=== PATIENT | female | born 2000 | race Caucasian/White ===

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

== ENCOUNTER 2021-03-27 20:01 | Emergency (ER) | payer OTHER ==
--- NOTE | 2021-03-27 20:26 | ED ---
General Adult HPI - General Chief complaint: Abdominal Pain Stated complaint: Abd Pain,Vomiting Time Seen by Provider: 03/27/21 20:18 Source: patient Mode of arrival: ambulatory Limitations: no limitations - History of Present Illness Initial comments: Dictation was produced using [employer] dictation software. please excuse any grammatical, word or spelling errors. Chief Complaint: 20-year-old female with no significant past medical history presents with nausea vomiting in abdominal pain History of Present Illness: Patient is a 20-year-old female presents to the emergency department with nausea vomiting and abdominal pain. She works at a [employer] She states that she was told by her boss to come to the emergency department and reevaluated. She had episode of nonbilious nonbloody vomiting. States that she has pain in her suprapubic area. Denies any urinary symptoms. Patient denies . Denies any constitutional symptoms. Denies any vaginal discharge or vaginal bleeding. The ROS documented in this emergency department record has been reviewed and confirmed by me. Those systems with pertinent positive or negative responses have been documented in the HPI. All other systems are other negative and/or noncontributory. PHYSICAL EXAM: General Impression: Alert and oriented x3, not in acute distress HEENT: Normocephalic atraumatic, extra-ocular movements intact, pupils equal and reactive to light bilaterally, mucous membranes moist. Cardiovascular: Heart regular rate and rhythm Chest: Able to complete full sentences, no retractions, no tachypnea Abdomen: abdomen soft, minimally tender in the suprapubic area., non-distended, no organomegaly Musculoskeletal: Pulses present and equal in all extremities, no peripheral edema Motor: no focal deficits noted Neurological: CN II-XII grossly intact, no focal motor or sensory deficits noted Skin: Intact with no visualized rashes Psych: Normal affect and mood ED course: 20-year-old female presents with abdominal pain nausea vomiting. Vital Signs upon arrival are within acceptable limits. Laboratory evaluation obtained. CBC, metabolic panel is unremarkable. Urinalysis is negative. Urine hCG is negative. Patient reevaluated at bedside. Patient reevaluated at signs continued to have what she reports is severe pain. She states that it is exacerbated with right lateral decubitus position. Patient states that her symptoms are colicky. There is concern for ovarian torsion. Transvaginal ultrasound is ordered. Transvaginal ultrasound was obtained showing small left ovarian cyst. Otherwise no acute processes. Patient reevaluated at bedside unable be in stable medical condition. Patient will be discharged. - Related Data Home Medications Medication Instructions Recorded Confirmed No Known Home Medications 07/20/18 07/20/18 Allergies Allergy/AdvReac Type Severity Reaction Status Date / Time No Known Allergies Allergy Verified 03/27/21 20:04 Review of Systems ROS Statement: Those systems with pertinent positive or pertinent negative responses have been documented in the HPI. ROS Other: All systems not noted in ROS Statement are negative. Past Medical History Past Medical History: No Reported History History of Any Multi-Drug Resistant Organisms: None Reported Past Surgical History: No Surgical Hx Reported Past Psychological History: Depression Past Alcohol Use History: None Reported Past Drug Use History: None Reported General Exam Limitations: no limitations Course Vital Signs 03/27/21 20:02 Temperature 98.7 F Pulse Rate 70 Respiratory 18 Rate Blood Pressure 110/65 O2 Sat by Pulse 100 Oximetry Medical Decision Making - Lab Data Result diagrams: 03/27/21 20:41 03/27/21 20:41 Lab Results 03/27/21 03/27/21 03/27/21 Range/Units 20:41 20:41 20:41 WBC 6.4 (4.0-11.0) k/uL RBC 4.48 (3.80-5.40) m/uL Hgb 11.2 L (11.4-16.0) gm/dL Hct 33.6 L (34.0-46.0) % MCV 75.0 L (80.0-100.0) fL MCH 25.0 (25.0-35.0) pg MCHC 33.3 (31.0-37.0) g/dL RDW 17.2 H (11.5-15.5) % Plt Count 274 (150-450) k/uL MPV 8.2 Neutrophils % 63 % Lymphocytes % 26 % Monocytes % 6 % Eosinophils % 3 % Basophils % 1 % Neutrophils # 4.1 (1.3-7.7) k/uL Lymphocytes # 1.6 (1.0-4.8) k/uL Monocytes # 0.4 (0-1.0) k/uL Eosinophils # 0.2 (0-0.7) k/uL Basophils # 0.1 (0-0.2) k/uL Anisocytosis Slight Microcytosis Slight Sodium (137-145) mmol/L Potassium (3.5-5.1) mmol/L Chloride (98-107) mmol/L Carbon Dioxide (22-30) mmol/L Anion Gap mmol/L BUN (7-17) mg/dL Creatinine (0.52-1.04) mg/dL Est GFR (CKD-EPI)AfAm (>60 ml/min/1.73 sqM) Est GFR (CKD-EPI)NonAf (>60 ml/min/1.73 sqM) Glucose (74-99) mg/dL Calcium (8.4-10.2) mg/dL Magnesium (1.6-2.3) mg/dL Total Bilirubin (0.2-1.3) mg/dL AST (14-36) U/L ALT (4-34) U/L Alkaline Phosphatase (38-126) U/L Total Protein (6.3-8.2) g/dL Albumin (3.5-5.0) g/dL Lipase (23-300) U/L Urine Color Yellow Urine Appearance Clear (Clear) Urine pH 6.5 (5.0-8.0) Ur Specific Kendall 1.015 (1.001-1.035) Urine Protein Negative (Negative) Urine Glucose (UA) Negative (Negative) Urine Ketones Negative (Negative) Urine Blood Negative (Negative) Urine Nitrite Negative (Negative) Urine Bilirubin Negative (Negative) Urine Urobilinogen <2.0 (<2.0) mg/dL Ur Leukocyte Esterase Negative (Negative) Urine HCG, Qual Not Detected (Not Detectd) 03/27/21 Range/Units 20:41 WBC (4.0-11.0) k/uL RBC (3.80-5.40) m/uL Hgb (11.4-16.0) gm/dL Hct (34.0-46.0) % MCV (80.0-100.0) fL MCH (25.0-35.0) pg MCHC (31.0-37.0) g/dL RDW (11.5-15.5) % Plt Count (150-450) k/uL MPV Neutrophils % % Lymphocytes % % Monocytes % % Eosinophils % % Basophils % % Neutrophils # (1.3-7.7) k/uL Lymphocytes # (1.0-4.8) k/uL Monocytes # (0-1.0) k/uL Eosinophils # (0-0.7) k/uL Basophils # (0-0.2) k/uL Anisocytosis Microcytosis Sodium 139 (137-145) mmol/L Potassium 3.7 (3.5-5.1) mmol/L Chloride 106 (98-107) mmol/L Carbon Dioxide 25 (22-30) mmol/L Anion Gap 8 mmol/L BUN 7 (7-17) mg/dL Creatinine 0.57 (0.52-1.04) mg/dL Est GFR (CKD-EPI)AfAm >90 (>60 ml/min/1.73 sqM) Est GFR (CKD-EPI)NonAf >90 (>60 ml/min/1.73 sqM) Glucose 83 (74-99) mg/dL Calcium 9.5 (8.4-10.2) mg/dL Magnesium 2.0 (1.6-2.3) mg/dL Total Bilirubin 0.1 L (0.2-1.3) mg/dL AST 24 (14-36) U/L ALT 11 (4-34) U/L Alkaline Phosphatase 63 (38-126) U/L Total Protein 7.5 (6.3-8.2) g/dL Albumin 4.5 (3.5-5.0) g/dL Lipase 103 (23-300) U/L Urine Color Urine Appearance (Clear) Urine pH (5.0-8.0) Ur Specific Kendall (1.001-1.035) Urine Protein (Negative) Urine Glucose (UA) (Negative) Urine Ketones (Negative) Urine Blood (Negative) Urine Nitrite (Negative) Urine Bilirubin (Negative) Urine Urobilinogen (<2.0) mg/dL Ur Leukocyte Esterase (Negative) Urine HCG, Qual (Not Detectd) Disposition Clinical Impression: Abdominal pain Disposition: HOME SELF-CARE Condition: Fair Instructions (If sedation given, give patient instructions): Abdominal Pain (ED) Is patient prescribed a controlled substance at d/c from ED?: No Referrals: None,Stated [Primary Care Provider] - 1-2 days
[2021-03-27 20:52] LABS: Anisocytosis Slight; Basophils # (A) 0.1 k/uL (0-0.2); Basophils % (A) 1 %; Eosinophils # (A) 0.2 k/uL (0-0.7); Eosinophils % (A) 3 %; HCT 33.6 % (34.0-46.0); HGB 11.2 gm/dL (11.4-16.0); Lymphocytes # (A) 1.6 k/uL (1.0-4.8); Lymphocytes % (A) 26 %; MCHC 33.3 g/dL (31.0-37.0); Mean Platelet Volume 8.2; Microcytosis Slight; Monocytes # (A) 0.4 k/uL (0-1.0); Monocytes % (A) 6 %; Neutrophils # (A) 4.1 k/uL (1.3-7.7); Neutrophils % (A) 63 %; Platelet Count 274 k/uL (150-450); RBC 4.48 m/uL (3.80-5.40); RDW 17.2 % (11.5-15.5); WBC 6.4 k/uL (4.0-11.0)
[2021-03-27 20:55] LABS: Appearance,Urine Clear (Clear); Bilirubin,Urine Negative (Negative); Blood,Urine Negative (Negative); Color,Urine Yellow; Glucose,Urine (UA) Negative (Negative); Ketones,Urine Negative (Negative); Leukocyte Esterase,Urine Negative (Negative); Nitrite,Urine Negative (Negative); PH, Urine 6.5 (5.0-8.0); Protein,Urine Negative (Negative); Specific Gravity,Urine 1.015 (1.001-1.035); Urobilinogen,Urine <2.0 mg/dL (<2.0)
[2021-03-27 21:06] LABS: ALT 11 U/L (4-34); AST 24 U/L (14-36); African American GFR (CKD) >90 (>60 ml/min/1.73 sqM); Albumin 4.5 g/dL (3.5-5.0); Alkaline Phosphatase 63 U/L (38-126); Anion Gap 8 mmol/L; Blood Urea Nitrogen 7 mg/dL (7-17); Calcium 9.5 mg/dL (8.4-10.2); Carbon Dioxide 25 mmol/L (22-30); Chloride 106 mmol/L (98-107); Glucose 83 mg/dL (74-99); Lipase 103 U/L (23-300); Non-African American GFR(CKD) >90 (>60 ml/min/1.73 sqM); Potassium 3.7 mmol/L (3.5-5.1); Sodium 139 mmol/L (137-145); Total Bilirubin 0.1 mg/dL (0.2-1.3); Total Protein 7.5 g/dL (6.3-8.2)
--- NOTE | 2021-03-27 21:57 | US ---
EXAMINATION TYPE: US transvaginal DATE OF EXAM: 03/27/2021 COMPARISON: NONE CLINICAL HISTORY: pelvic pain. Pain, NV TECHNIQUE: Transvaginal (TV) Date of LMP: 03/10/2021, G0 EXAM MEASUREMENTS: Uterus: 7.6 x 4.3 x 3.1 cm Endometrial Stripe: 0.9 cm Right Ovary: 3.4 x 2.2 x 1.6 cm Left Ovary: 3.5 x 2.7 x 2.4 cm 1. Uterus: Anteverted wnl 2. Endometrium: wnl 3. Right Ovary: wnl 4. Left Ovary: hypoechoic lesion with peripheral vascular flow = 1.7 x 1.9 x 1.0 cm Spectral, color and waveform doppler imaging shows good arterial and venous flow within the ovaries ; there is no evidence for ovarian torsion. 5. Bilateral Adnexa: free fluid seen in right adnexa 6. Posterior cul-de-sac: free fluid IMPRESSION: There is left ovarian cyst. Minimal free fluid in the right adnexal region. No evidence of solid adne xal mass. Normal uterus. No evidence of ovarian torsion.
[2021-03-27] MEDS: ONDANSETRON 4 MG ODT STARTER PACK 2 TAB BTL PO STA (23:04)
[2021-03-27] MEDS: IBUPROFEN 600 MG STARTER PACK 4 TAB BTL PO STA (23:04)
[2021-03-27] MEDS: IBUPROFEN 800 MG TAB PO STA (23:06)
[2021-03-27 23:13] VITALS: BP 111/78; PULSE 60; RESP 16; TEMP 98.4
== END 2021-03-27 23:13 | disposition home or self-care (01) ==
LOC: EC 20:01
DX: R10.9 Unspecified abdominal pain (principal); F32.9 Major depressive disorder, single episode, unspecified
CPT/HCPCS: 36415; 80053; 83690; 83735; 85025; 81003; 81025; 93975; 76830; 99284; S0119

== ENCOUNTER 2021-05-05 18:06 | Emergency (ER) | payer OTHER ==
[2021-05-05 18:19] VITALS: BP 103/67; PULSE 86; RESP 18; TEMP 97.4
[2021-05-05] MEDS ORDERED: IBUPROFEN 600 MG TAB PO STA (19:13)
--- NOTE | 2021-05-05 19:57 | XR ---
EXAMINATION TYPE: XR thoracic spine 2V DATE OF EXAM: 05/05/2021 COMPARISON: NONE HISTORY: Back pain TECHNIQUE: 3 views FINDINGS: Thoracic vertebra have normal spacing and alignment. Posterior elements are intact. There i s no paraspinal mass. There is no compression fracture. IMPRESSION: Negative thoracic spine exam. No fracture.
--- NOTE | 2021-05-05 20:00 | XR ---
EXAMINATION TYPE: XR lumbar spine 2 or 3V DATE OF EXAM: 05/05/2021 COMPARISON: NONE HISTORY: Back pain TECHNIQUE: 3 views FINDINGS: The lumbar vertebra have normal spacing and alignment. Posterior elements are intact. There is no compression fracture. Sacroiliac joints are intact. IMPRESSION: Negative lumbar spine exam. No fracture.
--- NOTE | 2021-05-05 20:13 | ED ---
Back Pain HPI - General Chief Complaint: Back Pain/Injury Stated Complaint: slip & fall, back pain Time Seen by Provider: 05/05/21 18:56 Source: patient Limitations: no limitations - History of Present Illness Initial Comments: 20-year-old female who presents emergency department for reported mid and lower back pain. States that she slipped on some water in the kitchen yesterday and fell flat on her back. She has had for. Present taken anything for pain. Denies any numbness, 2 layer weakness in her arms or legs. She did not lose consciousness. She did not her head. No fevers or chills. No history of drug use. No anesthesia. No other alleviating, precipitating or modifying factors - Related Data Home Medications Medication Instructions Recorded Confirmed No Known Home Medications 07/20/18 07/20/18 Allergies Allergy/AdvReac Type Severity Reaction Status Date / Time No Known Allergies Allergy Verified 05/05/21 18:19 Review of Systems ROS Statement: Those systems with pertinent positive or pertinent negative responses have been documented in the HPI. ROS Other: All systems not noted in ROS Statement are negative. Past Medical History Past Medical History: No Reported History History of Any Multi-Drug Resistant Organisms: None Reported Past Surgical History: No Surgical Hx Reported Past Psychological History: Depression Smoking Status: Vaper Past Alcohol Use History: None Reported Past Drug Use History: None Reported General Exam Limitations: no limitations Course Vital Signs 05/05/21 18:16 Temperature 97.4 F L Pulse Rate 86 Respiratory 18 Rate Blood Pressure 103/67 O2 Sat by Pulse 100 Oximetry Medical Decision Making - Medical Decision Making On arrival patient was placed into room 29. Thorough history and physical exam is performed. She is neurovascularly intact. She is sent over for x-rays of her thoracic and lumbar spine which demonstrate no acute fractures. She is offered something for pain control does agree to accept Motrin. Results are discussed the patient. She'll be discharged home and instructed to take Motrin and Tylenol at home for pain control. She is given a work no. Patient agreed to the treatment plan was discharged home in stable condition. She is to follow-up with primary care doctor in 2-4 days Disposition Clinical Impression: Thoracic back pain, Strain of lumbar region Disposition: HOME SELF-CARE Condition: Stable Instructions (If sedation given, give patient instructions): Acute Low Back Pain (ED) Additional Instructions: Take Motrin and Tylenol for pain control. Follow up with your doctor in 2-4 days. Return to the ED for any new or worsening symptoms. Is patient prescribed a controlled substance at d/c from ED?: No Referrals: None,Stated [Primary Care Provider] - 1-2 days Time of Disposition: 20:12
== END 2021-05-05 20:25 | disposition home or self-care (01) ==
LOC: EC 18:06
DX: S39.012A Strain of muscle, fascia and tendon of lower back, initial encounter (principal); M54.6 Pain in thoracic spine; F32.9 Major depressive disorder, single episode, unspecified; F17.290 Nicotine dependence, other tobacco product, uncomplicated; W01.0XXA Fall on same level from slipping, tripping and stumbling without subsequent striking against object, initial encounter; Y92.000 Kitchen of unspecified non-institutional (private) residence as the place of occurrence of the external cause
CPT/HCPCS: 72070; 72100; 99284

== ENCOUNTER 2021-06-26 16:58 | Emergency (ER) | payer OTHER ==
--- NOTE | 2021-06-26 17:14 | ED ---
General Adult HPI <Melinda Carlisle - Last Filed: 06/26/21 17:12> <Stephanie Mclean - Last Filed: 06/28/21 02:02> - General Stated complaint: Chest pain Time Seen by Provider: 06/26/21 17:15 - History of Present Illness Initial comments: Lauren is a previously healthy 20yo F who presents to the ER today via private vehicle for evaluation of 2 days of body aches, headaches, chest pain, shortness of breath and an episode of near syncope at work last night. Patient reports her headache is her most severe pain, 8/10 intensity, constant. (Meilnda Carlisle) 20-year-old female, presents healthy presents emergency Department with multiple complaints. She states she's had 2 days worth of headaches, body aches and chest pain. She works at [employer] and states that last night she almost had a near syncopal episode. Her workup was concerned about her symptoms and recommended that she be evaluated before she returns. She states that her headache is 8 out of 10, located globally. She has been taking Aleve without improvement in her symptoms. She denies neck stiffness or fevers. No sick contacts with similar symptoms. No recent head injuries. Denies previous history of cardiac disease. No family history of premature cardiac . His concern for . No concern for Covid. Mother allevating, precipitating or modifying factors (Stephanie Mclean) - Related Data Home Medications Medication Instructions Recorded Confirmed No Known Home Medications 07/20/18 06/26/21 Allergies Allergy/AdvReac Type Severity Reaction Status Date / Time No Known Allergies Allergy Verified 06/26/21 18:16 Review of Systems ROS Other: All systems not noted in ROS Statement are negative. <Melinda Carlisle - Last Filed: 06/26/21 17:12> ROS Other: All systems not noted in ROS Statement are negative. <Stephanie Mclean - Last Filed: 06/28/21 02:02> ROS Statement: Those systems with pertinent positive or pertinent negative responses have been documented in the HPI. Past Medical History Past Medical History: No Reported History History of Any Multi-Drug Resistant Organisms: None Reported Past Surgical History: No Surgical Hx Reported Past Psychological History: Depression Smoking Status: Vaper Past Alcohol Use History: None Reported Past Drug Use History: None Reported <Melinda Carlisle Zaynab - Last Filed: 06/26/21 17:12> Course Vital Signs 06/26/21 06/26/21 06/26/21 17:11 18:20 19:20 Temperature 98.9 F Pulse Rate 113 H 94 Pulse Rate [ 110 H Elephant Tamer ] Respiratory 20 18 Rate Blood Pressure 120/70 122/77 O2 Sat by Pulse 98 98 Oximetry 06/26/21 20:55 Temperature 98.6 F Pulse Rate 96 Pulse Rate [ Elephant Tamer ] Respiratory 20 Rate Blood Pressure 126/77 O2 Sat by Pulse 98 Oximetry EKG Findings - EKG Comments: EKG Findings:: EKG demonstrates a sinus tachycardia with a ventricular rate of 56. NE interval 142. Carafate 2. QTC of 399. No acute ST segment elevations or depressions. Inverted T waves V1 and V2 <Stephanie Mclean - Last Filed: 06/28/21 02:02> Medical Decision Making - Lab Data Result diagrams: 06/26/21 19:12 06/26/21 19:12 <Stephanie Mclean - Last Filed: 06/28/21 02:02> - Medical Decision Making The patient is placed in room 26. A thorough history and physical exam was performed. She is up to continuous pulse ox and cardiac monitoring. Laboratory studies were conducted. Patient went for a chest x-ray. Irises are reviewed. Covid is not detected. D-dimer 0.28. Troponins negative. 12-lead EKG demonstrate normal sinus rhythm. Chest x-ray demonstrates no acute cart he pulmonary disease. This time the patient will be discharged home and is instructed to follow-up with her primary care doctor for an echo. As the patient does have some concerns with working in regards to her current symptoms I did recommend that she stay off of work until she has her primary care evaluation. Patient agreed to this. She is given a work note. She is instructed to return for any new or worsening symptoms. Patient discharged with stable condition (Stephanie Mclean) - Lab Data Lab Results 06/26/21 06/26/21 06/26/21 Range/Units 17:49 19:12 19:12 WBC 5.8 (4.0-11.0) k/uL RBC 4.10 (3.80-5.40) m/uL Hgb 10.5 L (11.4-16.0) gm/dL Hct 31.2 L (34.0-46.0) % MCV 76.2 L (80.0-100.0) fL MCH 25.5 (25.0-35.0) pg MCHC 33.5 (31.0-37.0) g/dL RDW 16.0 H (11.5-15.5) % Plt Count 266 (150-450) k/uL MPV 7.9 Neutrophils % 57 % Lymphocytes % 27 % Monocytes % 7 % Eosinophils % 5 % Basophils % 0 % Neutrophils # 3.3 (1.3-7.7) k/uL Lymphocytes # 1.6 (1.0-4.8) k/uL Monocytes # 0.4 (0-1.0) k/uL Eosinophils # 0.3 (0-0.7) k/uL Basophils # 0.0 (0-0.2) k/uL Anisocytosis Slight Microcytosis Slight PT 10.4 (9.0-12.0) sec INR 1.0 (<1.2) APTT 24.5 (22.0-30.0) sec D-Dimer 0.28 (<0.60) mg/L FEU Sodium (137-145) mmol/L Potassium (3.5-5.1) mmol/L Chloride (98-107) mmol/L Carbon Dioxide (22-30) mmol/L Anion Gap mmol/L BUN (7-17) mg/dL Creatinine (0.52-1.04) mg/dL Est GFR (CKD-EPI)AfAm (>60 ml/min/1.73 sqM) Est GFR (CKD-EPI)NonAf (>60 ml/min/1.73 sqM) Glucose (74-99) mg/dL Calcium (8.4-10.2) mg/dL Magnesium (1.6-2.3) mg/dL Total Bilirubin (0.2-1.3) mg/dL AST (14-36) U/L ALT (4-34) U/L Alkaline Phosphatase (38-126) U/L Troponin I (0.000-0.034) ng/mL Total Protein (6.3-8.2) g/dL Albumin (3.5-5.0) g/dL Urine HCG, Qual (Not Detectd) Coronavirus (PCR) Not Detected (Not Detectd) 06/26/21 06/26/21 06/26/21 Range/Units 19:12 19:12 20:06 WBC (4.0-11.0) k/uL RBC (3.80-5.40) m/uL Hgb (11.4-16.0) gm/dL Hct (34.0-46.0) % MCV (80.0-100.0) fL MCH (25.0-35.0) pg MCHC (31.0-37.0) g/dL RDW (11.5-15.5) % Plt Count (150-450) k/uL MPV Neutrophils % % Lymphocytes % % Monocytes % % Eosinophils % % Basophils % % Neutrophils # (1.3-7.7) k/uL Lymphocytes # (1.0-4.8) k/uL Monocytes # (0-1.0) k/uL Eosinophils # (0-0.7) k/uL Basophils # (0-0.2) k/uL Anisocytosis Microcytosis PT (9.0-12.0) sec INR (<1.2) APTT (22.0-30.0) sec D-Dimer (<0.60) mg/L FEU Sodium 136 L (137-145) mmol/L Potassium 4.2 (3.5-5.1) mmol/L Chloride 107 (98-107) mmol/L Carbon Dioxide 22 (22-30) mmol/L Anion Gap 7 mmol/L BUN 7 (7-17) mg/dL Creatinine 0.54 (0.52-1.04) mg/dL Est GFR (CKD-EPI)AfAm >90 (>60 ml/min/1.73 sqM) Est GFR (CKD-EPI)NonAf >90 (>60 ml/min/1.73 sqM) Glucose 86 (74-99) mg/dL Calcium 9.2 (8.4-10.2) mg/dL Magnesium 2.0 (1.6-2.3) mg/dL Total Bilirubin 0.4 (0.2-1.3) mg/dL AST 29 (14-36) U/L ALT 11 (4-34) U/L Alkaline Phosphatase 51 (38-126) U/L Troponin I <0.012 (0.000-0.034) ng/mL Total Protein 7.2 (6.3-8.2) g/dL Albumin 4.2 (3.5-5.0) g/dL Urine HCG, Qual Not Detected (Not Detectd) Coronavirus (PCR) (Not Detectd) Disposition <Melinda Carlisle - Last Filed: 06/26/21 17:12> Is patient prescribed a controlled substance at d/c from ED?: No Time of Disposition: 20:44 <Stephanie Mclean - Last Filed: 06/28/21 02:02> Clinical Impression: Chest pain Disposition: HOME SELF-CARE Condition: Stable Instructions (If sedation given, give patient instructions): Chest Pain (ED) Additional Instructions: Please follow up with your PCP in 2-4 days. I recommend an ultrasound of your heart (echo). Return to the ED for any new or worsening symptoms. Referrals: None,Stated [Primary Care Provider] - 1-2 days
[2021-06-26] MEDS ORDERED: DEXAMETHASONE SOD PHOSPHATE 10 MG/ML 1 ML VIAL IV STA (18:46)
[2021-06-26] MEDS ORDERED: METOCLOPRAMIDE 5 MG/ML 2 ML VIAL IVP STA (18:46)
[2021-06-26] MEDS ORDERED: KETOROLAC 15 MG/ML 1 ML VIAL IVP STA (18:46)
[2021-06-26] MEDS ORDERED: diphenhydrAMINE 50 MG/ML 1 ML VIAL IVP STA (18:46)
[2021-06-26 19:36] LABS: Partial Thromboplastin Time 24.5 sec (22.0-30.0); Prothrombin Time 10.4 sec (9.0-12.0)
[2021-06-26 19:38] LABS: ALT 11 U/L (4-34); AST 29 U/L (14-36); African American GFR (CKD) >90 (>60 ml/min/1.73 sqM); Albumin 4.2 g/dL (3.5-5.0); Alkaline Phosphatase 51 U/L (38-126); Anion Gap 7 mmol/L; Blood Urea Nitrogen 7 mg/dL (7-17); Calcium 9.2 mg/dL (8.4-10.2); Carbon Dioxide 22 mmol/L (22-30); Chloride 107 mmol/L (98-107); Glucose 86 mg/dL (74-99); Non-African American GFR(CKD) >90 (>60 ml/min/1.73 sqM); Potassium 4.2 mmol/L (3.5-5.1); Sodium 136 mmol/L (137-145); Total Bilirubin 0.4 mg/dL (0.2-1.3); Total Protein 7.2 g/dL (6.3-8.2)
[2021-06-26 19:45] LABS: Anisocytosis Slight; Basophils % (A) 0 %; Eosinophils # (A) 0.3 k/uL (0-0.7); Eosinophils % (A) 5 %; HCT 31.2 % (34.0-46.0); HGB 10.5 gm/dL (11.4-16.0); Lymphocytes # (A) 1.6 k/uL (1.0-4.8); Lymphocytes % (A) 27 %; MCH 25.5 pg (25.0-35.0); MCHC 33.5 g/dL (31.0-37.0); MCV 76.2 fL (80.0-100.0); Mean Platelet Volume 7.9; Microcytosis Slight; Monocytes # (A) 0.4 k/uL (0-1.0); Monocytes % (A) 7 %; Neutrophils # (A) 3.3 k/uL (1.3-7.7); Neutrophils % (A) 57 %; Platelet Count 266 k/uL (150-450); WBC 5.8 k/uL (4.0-11.0)
[2021-06-26 21:04] VITALS: BP 126/77; PULSE 96; RESP 20; TEMP 98.6
--- NOTE | 2021-06-26 21:10 | XR ---
EXAMINATION TYPE: XR chest 2V DATE OF EXAM: 06/26/2021 CLINICAL HISTORY: Chest Pain. TECHNIQUE: Frontal and lateral view of the chest. COMPARISON: 07/20/2018 FINDINGS: The cardiomediastinal silhouette is within normal limits for size. Pulmonary vasculature i s normal. There is no focal air space opacity. No pleural effusion. No pneumothorax seen. No acute d isplaced osseous fracture. IMPRESSION: No acute cardiopulmonary process.
== END 2021-06-26 20:55 | disposition home or self-care (01) ==
LOC: EC 16:58
DX: R07.9 Chest pain, unspecified (principal); F32.9 Major depressive disorder, single episode, unspecified; F17.290 Nicotine dependence, other tobacco product, uncomplicated; Z20.822 Contact with and (suspected) exposure to COVID-19
CPT/HCPCS: 99285; 96374; 96375 ×3; 36415; 93005; 85379; 80053; 83735; 84484; 85025; 85610; 85730; 81025; 87635; 71046; J1200; J1100; J2765; J1885

== ENCOUNTER 2021-08-22 14:17 | Emergency (ER) | payer OTHER ==
[2021-08-22 14:31] VITALS: BP 119/75; PULSE 98; RESP 18; TEMP 98.2
[2021-08-22] MEDS ORDERED: SODIUM CHLORIDE 0.9% 1,000 ML IV STA (15:12)
[2021-08-22] MEDS ORDERED: ONDANSETRON 4 MG/2 ML VIAL IVP STA (15:12)
--- NOTE | 2021-08-22 15:19 | ED ---
General Adult HPI - General Chief complaint: Abdominal Pain Stated complaint: Abdominal pain Source: patient, RN notes reviewed Mode of arrival: ambulatory Limitations: no limitations - History of Present Illness Initial comments: 20-year-old female presents to the emergency room for abdominal pain. Patient has had upper abdominal pain for 2 days now. Does admit to some mild lower abdominal pain as well. Patient states she took melatonin 2 nights ago to sleep and then her upper abdomen started hurting. She has been vomiting. No diarrhea. No fevers. Denies any previous abdominal surgeries. Patient has no other complaints at this time including shortness of breath, chest pain, headache, or visual changes. - Related Data Home Medications Medication Instructions Recorded Confirmed Ibuprofen [Motrin Ib] 200 mg PO Q8H PRN 08/22/21 08/22/21 Previous Rx's Medication Instructions Recorded Ondansetron [Zofran ODT] 4 mg PO Q8HR PRN #15 tab 08/22/21 Allergies Allergy/AdvReac Type Severity Reaction Status Date / Time No Known Allergies Allergy Verified 08/22/21 16:13 Review of Systems ROS Statement: Those systems with pertinent positive or pertinent negative responses have been documented in the HPI. ROS Other: All systems not noted in ROS Statement are negative. Past Medical History Past Medical History: No Reported History History of Any Multi-Drug Resistant Organisms: None Reported Past Surgical History: No Surgical Hx Reported Past Psychological History: Depression Smoking Status: Vaper Past Alcohol Use History: None Reported Past Drug Use History: None Reported General Exam Limitations: no limitations General appearance: alert, in no apparent distress Head exam: Present: atraumatic Eye exam: Present: normal appearance, PERRL, EOMI. Absent: scleral icterus, conjunctival injection ENT exam: Present: normal exam, mucous membranes moist Neck exam: Present: normal inspection, full ROM. Absent: tenderness Respiratory exam: Present: normal lung sounds bilaterally. Absent: respiratory distress, wheezes Cardiovascular Exam: Present: regular rate, normal rhythm, normal heart sounds GI/Abdominal exam: Present: soft, tenderness (Mild generalized abdominal tenderness), normal bowel sounds. Absent: distended Expanded GI/Abdominal exam: Absent: Orellana's sign Course Vital Signs 08/22/21 14:28 Temperature 98.2 F Pulse Rate 98 Respiratory 18 Rate Blood Pressure 119/75 O2 Sat by Pulse 96 Oximetry Medical Decision Making - Medical Decision Making Vitals are stable. Patient is well-appearing. Minimal abdominal tenderness noted generalized in nature. CBC CMP unremarkable. Urinalysis is negative. HCG negative. CT abdomen and pelvis with contrast shows a small amount of free fluid in the pelvis with a 3 cm right ovarian cyst. Appendix is not seen. Patient reevaluated and pain about a 1. Symptoms are not consistent with torsion. Suspect that nausea vomiting is related to gastroenteritis and ovarian cyst is incidental finding. Patient will need to follow-up with [facility] for this regardless. We will try and which has helped her here in the emergency room. She'll return here for any worsening symptoms. - Lab Data Result diagrams: 08/22/21 15:32 08/22/21 15:32 Lab Results 08/22/21 08/22/21 08/22/21 Range/Units 15:32 15:32 15:32 WBC 6.1 (4.0-11.0) k/uL RBC 4.31 (3.80-5.40) m/uL Hgb 10.5 L (11.4-16.0) gm/dL Hct 32.4 L (34.0-46.0) % MCV 75.0 L (80.0-100.0) fL MCH 24.3 L (25.0-35.0) pg MCHC 32.4 (31.0-37.0) g/dL RDW 16.4 H (11.5-15.5) % Plt Count 327 (150-450) k/uL MPV 7.9 Neutrophils % 62 % Lymphocytes % 22 % Monocytes % 6 % Eosinophils % 5 % Basophils % 1 % Neutrophils # 3.8 (1.3-7.7) k/uL Lymphocytes # 1.3 (1.0-4.8) k/uL Monocytes # 0.4 (0-1.0) k/uL Eosinophils # 0.3 (0-0.7) k/uL Basophils # 0.0 (0-0.2) k/uL Hypochromasia Slight Poikilocytosis Slight Anisocytosis Slight Microcytosis Slight Sodium (137-145) mmol/L Potassium (3.5-5.1) mmol/L Chloride (98-107) mmol/L Carbon Dioxide (22-30) mmol/L Anion Gap mmol/L BUN (7-17) mg/dL Creatinine (0.52-1.04) mg/dL Est GFR (CKD-EPI)AfAm (>60 ml/min/1.73 sqM) Est GFR (CKD-EPI)NonAf (>60 ml/min/1.73 sqM) Glucose (74-99) mg/dL Plasma Lactic Acid Michael (0.7-2.0) mmol/L Calcium (8.4-10.2) mg/dL Total Bilirubin (0.2-1.3) mg/dL AST (14-36) U/L ALT (4-34) U/L Alkaline Phosphatase (38-126) U/L Total Protein (6.3-8.2) g/dL Albumin (3.5-5.0) g/dL Amylase (30-110) U/L Lipase (23-300) U/L Urine Color Light Yellow Urine Appearance Clear (Clear) Urine pH 6.0 (5.0-8.0) Ur Specific [place] 1.003 (1.001-1.035) Urine Protein Negative (Negative) Urine Glucose (UA) Negative (Negative) Urine Ketones Negative (Negative) Urine Blood Negative (Negative) Urine Nitrite Negative (Negative) Urine Bilirubin Negative (Negative) Urine Urobilinogen <2.0 (<2.0) mg/dL Ur Leukocyte Esterase Negative (Negative) Urine HCG, Qual Not Detected (Not Detectd) Salicylates mg/dL Acetaminophen ug/mL 08/22/21 08/22/21 Range/Units 15:32 15:32 WBC (4.0-11.0) k/uL RBC (3.80-5.40) m/uL Hgb (11.4-16.0) gm/dL Hct (34.0-46.0) % MCV (80.0-100.0) fL MCH (25.0-35.0) pg MCHC (31.0-37.0) g/dL RDW (11.5-15.5) % Plt Count (150-450) k/uL MPV Neutrophils % % Lymphocytes % % Monocytes % % Eosinophils % % Basophils % % Neutrophils # (1.3-7.7) k/uL Lymphocytes # (1.0-4.8) k/uL Monocytes # (0-1.0) k/uL Eosinophils # (0-0.7) k/uL Basophils # (0-0.2) k/uL Hypochromasia Poikilocytosis Anisocytosis Microcytosis Sodium 138 (137-145) mmol/L Potassium 4.0 (3.5-5.1) mmol/L Chloride 106 (98-107) mmol/L Carbon Dioxide 22 (22-30) mmol/L Anion Gap 10 mmol/L BUN 6 L (7-17) mg/dL Creatinine 0.59 (0.52-1.04) mg/dL Est GFR (CKD-EPI)AfAm >90 (>60 ml/min/1.73 sqM) Est GFR (CKD-EPI)NonAf >90 (>60 ml/min/1.73 sqM) Glucose 74 (74-99) mg/dL Plasma Lactic Acid Michael 0.8 (0.7-2.0) mmol/L Calcium 9.5 (8.4-10.2) mg/dL Total Bilirubin 0.2 (0.2-1.3) mg/dL AST 39 H (14-36) U/L ALT 17 (4-34) U/L Alkaline Phosphatase 58 (38-126) U/L Total Protein 7.7 (6.3-8.2) g/dL Albumin 4.6 (3.5-5.0) g/dL Amylase 152 H (30-110) U/L Lipase 220 (23-300) U/L Urine Color Urine Appearance (Clear) Urine pH (5.0-8.0) Ur Specific [place] (1.001-1.035) Urine Protein (Negative) Urine Glucose (UA) (Negative) Urine Ketones (Negative) Urine Blood (Negative) Urine Nitrite (Negative) Urine Bilirubin (Negative) Urine Urobilinogen (<2.0) mg/dL Ur Leukocyte Esterase (Negative) Urine HCG, Qual (Not Detectd) Salicylates <1.0 mg/dL Acetaminophen <10.0 ug/mL Disposition Clinical Impression: Nausea & vomiting, Ovarian cyst Disposition: HOME SELF-CARE Condition: Good Instructions (If sedation given, give patient instructions): Ovarian Cyst (ED) Additional Instructions: Please take Motrin and Tylenol for pain. Take Zofran as needed for nausea. Follow-up with your doctor in one to 2 days as well as OBGYN regarding ovarian cyst. Return to the emergency room for any worsening symptoms. Prescriptions: Ondansetron [Zofran ODT] 4 mg PO Q8HR PRN #15 tab PRN Reason: Nausea Is patient prescribed a controlled substance at d/c from ED?: No Referrals: Ra Traylor DO [Doctor of Osteopathic Medicine] - 1-2 days Time of Disposition: 17:14
[2021-08-22 15:46] LABS: Appearance,Urine Clear (Clear); Bilirubin,Urine Negative (Negative); Blood,Urine Negative (Negative); Color,Urine Light Yellow; Glucose,Urine (UA) Negative (Negative); Ketones,Urine Negative (Negative); Leukocyte Esterase,Urine Negative (Negative); Nitrite,Urine Negative (Negative); Protein,Urine Negative (Negative); Specific Gravity,Urine 1.003 (1.001-1.035); Urobilinogen,Urine <2.0 mg/dL (<2.0)
[2021-08-22 15:52] LABS: Anisocytosis Slight; Basophils % (A) 1 %; Eosinophils # (A) 0.3 k/uL (0-0.7); Eosinophils % (A) 5 %; HCT 32.4 % (34.0-46.0); HGB 10.5 gm/dL (11.4-16.0); Hypochromasia Slight; Lymphocytes # (A) 1.3 k/uL (1.0-4.8); Lymphocytes % (A) 22 %; MCH 24.3 pg (25.0-35.0); MCHC 32.4 g/dL (31.0-37.0); Mean Platelet Volume 7.9; Microcytosis Slight; Monocytes # (A) 0.4 k/uL (0-1.0); Monocytes % (A) 6 %; Neutrophils # (A) 3.8 k/uL (1.3-7.7); Neutrophils % (A) 62 %; Platelet Count 327 k/uL (150-450); Poikilocytosis Slight; RBC 4.31 m/uL (3.80-5.40); RDW 16.4 % (11.5-15.5); WBC 6.1 k/uL (4.0-11.0)
[2021-08-22 15:56] LABS: ALT 17 U/L (4-34); AST 39 U/L (14-36); Acetaminophen <10.0 ug/mL; African American GFR (CKD) >90 (>60 ml/min/1.73 sqM); Albumin 4.6 g/dL (3.5-5.0); Alkaline Phosphatase 58 U/L (38-126); Amylase 152 U/L (30-110); Anion Gap 10 mmol/L; Blood Urea Nitrogen 6 mg/dL (7-17); Calcium 9.5 mg/dL (8.4-10.2); Carbon Dioxide 22 mmol/L (22-30); Chloride 106 mmol/L (98-107); Glucose 74 mg/dL (74-99); Lipase 220 U/L (23-300); Non-African American GFR(CKD) >90 (>60 ml/min/1.73 sqM); Salicylate <1.0 mg/dL; Sodium 138 mmol/L (137-145); Total Bilirubin 0.2 mg/dL (0.2-1.3); Total Protein 7.7 g/dL (6.3-8.2)
[2021-08-22] MEDS ORDERED: KETOROLAC 15 MG/ML 1 ML VIAL IVP STA (16:04)
--- NOTE | 2021-08-22 17:02 | CT ---
EXAMINATION TYPE: CT abdomen pelvis w con DATE OF EXAM: 08/22/2021 COMPARISON: None HISTORY: RLQ pain CT DLP: 458.5 mGycm Automated exposure control for dose reduction was used. CONTRAST: Performed with IV Contrast, patient injected with 100 mL of Isovue 300. Lung bases are clear. There is no pleural effusion. Heart size is normal. There is no pericardial eff usion. Liver and spleen are intact. The bile ducts are not dilated. Gallbladder is somewhat contracte d. There is no evidence of pancreatic mass. There is no adrenal mass. Kidneys show satisfactory contrast opacification. There is no hydronephrosi s. There is no retroperitoneal adenopathy. Ureters are not dilated. Bladder distends smoothly. There is some mild free fluid in the pelvis on the right side. There is irregular 3 cm cyst on the right ov mariangel. The cecum is low in the pelvis. Appendix is not seen. There is no sign of thickened appendix. The lumbar vertebra have normal alignment. Posterior elements are intact. There is no compression fra cture. Bony pelvis is intact. The hip joints are intact. Sacroiliac joints are intact. There is no ev idence of mesenteric edema. There is no ascites or free air. There is no evidence of bowel obstructio n. IMPRESSION: Small amount of free fluid in the pelvis. Right ovarian cyst. Appendix not seen. No sign of thickened appendix.
== END 2021-08-22 17:48 | disposition home or self-care (01) ==
LOC: EC 14:17
DX: N83.201 Unspecified ovarian cyst, right side (principal); R11.2 Nausea with vomiting, unspecified; F32.9 Major depressive disorder, single episode, unspecified; F17.290 Nicotine dependence, other tobacco product, uncomplicated
CPT/HCPCS: 36415; 80053; 82150; 83605; 83690; 85025; 81003; 81025; 80143; 80179; 74177; 99284; 96374; 96375; 96361; J2405; J1885; Q9967

== ENCOUNTER 2021-09-19 00:29 | Emergency (ER) | payer OTHER ==
[2021-09-19 01:27] VITALS: BP 103/72; PULSE 103; RESP 24; TEMP 98.3
--- NOTE | 2021-09-19 01:48 | XR ---
EXAMINATION TYPE: XR chest 1V portable DATE OF EXAM: 09/19/2021 COMPARISON: 06/26/2021 HISTORY: Chest pain TECHNIQUE: FINDINGS: Heart and mediastinum are normal. Lungs are clear. Diaphragm is normal. Bony thorax appears normal. IMPRESSION: Normal chest. No change.
--- NOTE | 2021-09-19 02:43 | ED ---
General Adult HPI - General Chief complaint: Shortness of Breath Stated complaint: DEJAN Time Seen by Provider: 09/19/21 02:33 Source: patient Mode of arrival: ambulatory Limitations: no limitations - History of Present Illness Initial comments: 20-year-old female patient presents to the emergency department today for evaluation of shortness of breath, chest discomfort, and headache for the last 2 days. Patient states that she was exposed to COVID at work. She denies any fever or chills. Denies any nausea, vomiting, or diarrhea. Reports mild intermittent cough. States she has had decreased appetite today. She denies any chance of . Denies any chronic medical conditions. She denies taking any medication for her symptoms. - Related Data Home Medications Medication Instructions Recorded Confirmed Ibuprofen [Motrin Ib] 200 mg PO Q8H PRN 08/22/21 08/22/21 Previous Rx's Medication Instructions Recorded Ondansetron [Zofran ODT] 4 mg PO Q8HR PRN #15 tab 08/22/21 Ibuprofen [Motrin] 600 mg PO Q8HR PRN #30 tab 09/19/21 Ondansetron [Zofran ODT] 4 mg PO Q8HR PRN #20 tab 09/19/21 guaiFENesin-DM 600/30MG [Mucinex 1 each PO Q12HR #10 tab 09/19/21 Dm] Allergies Allergy/AdvReac Type Severity Reaction Status Date / Time No Known Allergies Allergy Verified 09/19/21 01:27 Review of Systems ROS Statement: Those systems with pertinent positive or pertinent negative responses have been documented in the HPI. ROS Other: All systems not noted in ROS Statement are negative. Past Medical History Past Medical History: No Reported History History of Any Multi-Drug Resistant Organisms: None Reported Past Surgical History: No Surgical Hx Reported Past Psychological History: Anxiety, Depression Smoking Status: Vaper Past Alcohol Use History: None Reported Past Drug Use History: None Reported General Exam Limitations: no limitations General appearance: alert, in no apparent distress, other (This is a well- developed, well-nourished adult female in no acute distress.) ENT exam: Present: normal exam, normal oropharynx, mucous membranes moist, TM's normal bilaterally Respiratory exam: Present: normal lung sounds bilaterally. Absent: respiratory distress, wheezes, rales, rhonchi, stridor Cardiovascular Exam: Present: regular rate, normal rhythm, normal heart sounds. Absent: systolic murmur, diastolic murmur, rubs, gallop, clicks GI/Abdominal exam: Present: soft, normal bowel sounds. Absent: distended, tenderness, guarding, rebound, rigid Neurological exam: Present: alert, oriented X3, CN II-XII intact Psychiatric exam: Present: normal affect, normal mood Skin exam: Present: warm, dry, intact, normal color. Absent: rash Course Vital Signs 09/19/21 01:25 Temperature 98.3 F Pulse Rate 103 H Respiratory 24 Rate Blood Pressure 103/72 O2 Sat by Pulse 100 Oximetry Medical Decision Making - Medical Decision Making 20-year-old female patient presents to the emergency department today for evaluation of headache, shortness of breath, intermittent chest pain. Physical examination is unremarkable. Lungs are clear to auscultation with good air movement. Abdomen soft and nontender. She is afebrile with normal vital signs. She did test positive for COVID-19. Chest x-ray is negative. She does not meet criteria to receive monoclonal antibody infusion. She is given prescriptions for medication for symptom relief. She is instructed to follow-up with her primary care physician for recheck in 1-2 days. Return parameters were discussed in detail. She verbalizes understanding and agrees with this plan. My attending is Dr. Murry. - Lab Data Lab Results 09/19/21 Range/Units 01:29 Coronavirus (PCR) Detected A (Not Detectd) - Radiology Data Radiology results: report reviewed, image reviewed One view x-ray of the chest is obtained. Report was reviewed in its entirety. Impression by Dr. Lowery shows normal chest. No change. Disposition Clinical Impression: COVID-19 Disposition: HOME SELF-CARE Condition: Good Instructions (If sedation given, give patient instructions): Coronavirus Disease 2019 (COVID-19) Additional Instructions: Tips to help you feel better: -Maintain adequate fluid intake - especially water. -Rest, you are healing your body will require extra sleep. -Eat even if you do not feel like it - broth, jello, toast are fine if you cannot eat full meals. -Take tylenol and motrin alternating (if you have no allergies or have not been instructed to avoid these medications) to help with body aches and fevers. -Obtain over the counter vitamin C, zinc, and vitamin D3. -Take medications as prescribed. Follow-up with your primary care physician for recheck in 1-2 days. Return for any new, worsening, or concerning symptoms. Prescriptions: Ibuprofen [Motrin] 600 mg PO Q8HR PRN #30 tab PRN Reason: Pain guaiFENesin-DM 600/30MG [Mucinex Dm] 1 each PO Q12HR #10 tab Ondansetron [Zofran ODT] 4 mg PO Q8HR PRN #20 tab PRN Reason: Nausea Is patient prescribed a controlled substance at d/c from ED?: No Referrals: None,Stated [Primary Care Provider] - 1-2 days Time of Disposition: 02:43
== END 2021-09-19 02:47 | disposition home or self-care (01) ==
LOC: EC 00:29
DX: U07.1 COVID-19 (principal); F17.290 Nicotine dependence, other tobacco product, uncomplicated; Z79.1 Long term (current) use of non-steroidal anti-inflammatories (NSAID); Z79.899 Other long term (current) drug therapy
CPT/HCPCS: 71045; 87635; 99284

== ENCOUNTER 2021-09-29 14:13 | Emergency (ER) | payer OTHER ==
[2021-09-29 15:54] VITALS: BP 111/68; RESP 18; TEMP 97.8
--- NOTE | 2021-09-29 17:04 | ED ---
General Adult HPI - General Chief complaint: Headache Stated complaint: Headache,chest pain Time Seen by Provider: 09/29/21 16:55 Source: patient, RN notes reviewed, old records reviewed Mode of arrival: ambulatory Limitations: no limitations - History of Present Illness Initial comments: 20-year-old well-appearing female patient, alert and oriented 4, presents to the emergency room with complaints of a frontal headache nasal congestion. Patient states that she was diagnosed with covid 3 weeks ago. She is supposed to go back to work but does not have a negative test. She is asking for covid test today. She states that he has not had any fevers. He continues to have nasal congestion. No other medical history no medicines on a daily basis. She denies any risk of . -: week(s) (3) Location: head, face Severity scale (1-10): 10 Quality: aching Consistency: intermittent Improves with: none Worsens with: other (bending over) Associated Symptoms: other (runny nose congestion) Treatments Prior to Arrival: none - Related Data Home Medications Medication Instructions Recorded Confirmed Ibuprofen [Motrin Ib] 200 mg PO Q8H PRN 08/22/21 08/22/21 Previous Rx's Medication Instructions Recorded Ondansetron [Zofran ODT] 4 mg PO Q8HR PRN #15 tab 08/22/21 Ibuprofen [Motrin] 600 mg PO Q8HR PRN #30 tab 09/19/21 Ondansetron [Zofran ODT] 4 mg PO Q8HR PRN #20 tab 09/19/21 guaiFENesin-DM 600/30MG [Mucinex 1 each PO Q12HR #10 tab 09/19/21 Dm] Allergies Allergy/AdvReac Type Severity Reaction Status Date / Time No Known Allergies Allergy Verified 09/29/21 15:54 Review of Systems ROS Statement: Those systems with pertinent positive or pertinent negative responses have been documented in the HPI. ROS Other: All systems not noted in ROS Statement are negative. Past Medical History Past Medical History: No Reported History History of Any Multi-Drug Resistant Organisms: None Reported Past Surgical History: No Surgical Hx Reported Past Psychological History: Anxiety, Depression Smoking Status: Vaper Past Alcohol Use History: None Reported Past Drug Use History: None Reported General Exam Limitations: no limitations General appearance: alert, in no apparent distress Head exam: Present: atraumatic, normocephalic, normal inspection Eye exam: Present: normal appearance, EOMI. Absent: scleral icterus, conjunctival injection, nystagmus, periorbital swelling ENT exam: Present: normal exam, normal oropharynx, mucous membranes moist Neck exam: Present: normal inspection, full ROM. Absent: tenderness, meningismus, lymphadenopathy, thyromegaly Respiratory exam: Present: normal lung sounds bilaterally. Absent: respiratory distress, wheezes, rales, rhonchi, stridor, chest wall tenderness, accessory muscle use Cardiovascular Exam: Present: tachycardia. Absent: JVD GI/Abdominal exam: Present: soft, normal bowel sounds. Absent: distended, tenderness, guarding, rebound, rigid Neurological exam: Present: alert, oriented X3, normal gait Psychiatric exam: Present: normal affect, normal mood. Absent: anxious, flat affect Skin exam: Present: warm, dry, intact, normal color. Absent: rash, cyanosis, diaphoretic Course Vital Signs 09/29/21 09/29/21 15:51 17:54 Temperature 97.8 F Pulse Rate 113 H 83 Respiratory 18 Rate Blood Pressure 111/68 O2 Sat by Pulse 100 100 Oximetry Medical Decision Making - Medical Decision Making 20-year-old female presents to the emergency room with a headache states that she tested positive for coronavirus on 09/19 of this year. Patient states that she continues to have a headache and her boss wants her to have a negative rapid test before she comes back to work. She is positive for Covid in the emergency room again today. She was directed to continue taking Motrin as needed for her headaches, increase her fluid intake and follow-up with her primary care doctor. Return to the emergency room with any new or concerning symptoms. - Lab Data Lab Results 09/29/21 Range/Units 17:06 Coronavirus (PCR) Detected A (Not Detectd) Disposition Clinical Impression: COVID-19 Disposition: HOME SELF-CARE Condition: Good Instructions (If sedation given, give patient instructions): Coronavirus Disease 2019 (COVID-19), Acute Headache (ED) Additional Instructions: Take Tylenol and/or Motrin as needed for headaches. Increase your fluid intake to prevent dehydration and worsening headaches. Covid test is still positive today. Self quarantine until symptoms resolve and 24 hours without fever. Is patient prescribed a controlled substance at d/c from ED?: No Referrals: None,Stated [Primary Care Provider] - 1-2 days Time of Disposition: 17:41
[2021-09-29] MEDS ORDERED: IBUPROFEN 400 MG TAB PO STA (17:05)
[2021-09-29 18:16] VITALS: PULSE 83
== END 2021-09-29 18:20 | disposition home or self-care (01) ==
LOC: EC 14:13
DX: U07.1 COVID-19 (principal); F17.290 Nicotine dependence, other tobacco product, uncomplicated
CPT/HCPCS: 87635; 99284

== ENCOUNTER 2021-10-20 00:20 | Emergency (ER) | payer OTHER ==
--- NOTE | 2021-10-20 03:52 | ED ---
Lower Extremity Injury HPI - General Chief Complaint: Extremity Injury, Lower Stated Complaint: Right Knee Pain Time Seen by Provider: 10/20/21 03:43 Source: patient Mode of arrival: ambulatory Limitations: no limitations - History of Present Illness MD Complaint: knee injury Onset/Timin -: week(s) Injury: Knee: Right Type of Injury: blunt Place: street/outdoors Severity: moderate Improves With: rest Worsens With: movement Context: fall Treatments Prior to Arrival: NSAIDS - Related Data Home Medications Medication Instructions Recorded Confirmed Ibuprofen [Motrin Ib] 200 mg PO Q8H PRN 08/22/21 08/22/21 Previous Rx's Medication Instructions Recorded Ondansetron [Zofran ODT] 4 mg PO Q8HR PRN #15 tab 08/22/21 Ibuprofen [Motrin] 600 mg PO Q8HR PRN #30 tab 09/19/21 Ondansetron [Zofran ODT] 4 mg PO Q8HR PRN #20 tab 09/19/21 guaiFENesin-DM 600/30MG [Mucinex 1 each PO Q12HR #10 tab 09/19/21 Dm] Ibuprofen [Motrin] 600 mg PO Q8HR PRN #20 tab 10/20/21 Allergies Allergy/AdvReac Type Severity Reaction Status Date / Time No Known Allergies Allergy Verified 10/20/21 01:14 Review of Systems ROS Statement: Those systems with pertinent positive or pertinent negative responses have been documented in the HPI. ROS Other: All systems not noted in ROS Statement are negative. Constitutional: Denies: fever, chills Respiratory: Denies: cough, dyspnea Cardiovascular: Denies: chest pain, palpitations Gastrointestinal: Denies: abdominal pain, vomiting, diarrhea Musculoskeletal: Reports: as per HPI, arthralgia Skin: Denies: lesions Neurological: Denies: headache, weakness Past Medical History Past Medical History: No Reported History History of Any Multi-Drug Resistant Organisms: None Reported Past Surgical History: No Surgical Hx Reported Past Psychological History: Anxiety, Depression Smoking Status: Vaper Past Alcohol Use History: None Reported Past Drug Use History: None Reported General Exam Limitations: no limitations General appearance: alert, in no apparent distress Respiratory exam: Present: normal lung sounds bilaterally. Absent: respiratory distress, wheezes, rales, rhonchi, stridor Cardiovascular Exam: Present: regular rate, normal rhythm, normal heart sounds. Absent: systolic murmur, diastolic murmur, rubs, gallop Extremities exam: Present: normal inspection, full ROM, normal capillary refill. Absent: tenderness, pedal edema, joint swelling, calf tenderness Neurological exam: Present: alert Skin exam: Present: warm, dry, intact, normal color. Absent: rash Course Vital Signs 10/20/21 10/20/21 01:09 03:56 Temperature 98.1 F 98.8 F Pulse Rate 105 H 83 Respiratory 18 22 Rate Blood Pressure 118/80 127/79 O2 Sat by Pulse 99 97 Oximetry Medical Decision Making - Lab Data Lab Results 10/20/21 Range/Units 01:18 Coronavirus (PCR) Detected A (Not Detectd) Disposition Clinical Impression: COVID, Knee sprain Disposition: HOME SELF-CARE Condition: Good Instructions (If sedation given, give patient instructions): Coronavirus Disease 2019 (COVID-19), Knee Sprain (ED) Prescriptions: Ibuprofen [Motrin] 600 mg PO Q8HR PRN #20 tab PRN Reason: Pain Is patient prescribed a controlled substance at d/c from ED?: No Referrals: None,Stated [Primary Care Provider] - 1-2 days Eddi Cardenas DO [Doctor of Osteopathic Medicine] - 1-2 days
[2021-10-20 03:57] VITALS: BP 127/79; PULSE 83; RESP 22; TEMP 98.8
== END 2021-10-20 03:56 | disposition home or self-care (01) ==
LOC: EC 00:20
DX: U07.1 COVID-19 (principal); S83.8X1A Sprain of other specified parts of right knee, initial encounter; F41.9 Anxiety disorder, unspecified; F32.A Depression, unspecified; F17.290 Nicotine dependence, other tobacco product, uncomplicated; X58.XXXA Exposure to other specified factors, initial encounter
CPT/HCPCS: 87635; 99283